=== PATIENT | female | born 1955 | race Caucasian/White ===

== ENCOUNTER → 2016-10-08 | Outpatient (REF) | payer OTHER | LOC: M SFHCWAGY 14:00 | PROVIDERS: ATTEND Nurse Practitioner Women's Health | DX: Z12.4 Encounter for screening for malignant neoplasm of cervix (principal); N95.2 Postmenopausal atrophic vaginitis ==

== ENCOUNTER → 2016-10-08 | Outpatient (CLI) | payer OTHER ==
--- NOTE | 2016-10-08 14:24 | REPMRS ---
Patient History The patient states she had a clinical breast exam in 09/2016. Patient is postmenopausal and has history of colorectal cancer at age 55. Family history of endometrial cancer in mother at age 38. Digital Woman Screen Mammo: October 08, 2016 - Exam #: [id number] Bilateral CC and MLO view(s) were taken. Technologist: Ophelia Butler Technologist Prior study comparison: September 06, 2015, digital woman screen mammo performed at [facility]. September 05, 2014, digital woman screen mammo performed at [facility]. May 24, 2013, digital woman screen mammo performed at [facility] to [facility]. FINDINGS: There are scattered fibroglandular densities. There has been no change in the appearance of the mammogram from the prior studies. There is a mild amount of scattered fibroglandular density which is fairly symmetric. There is no interval development of dominant mass, architectural distortion, or clustered microcalcification suggestive of malignancy. ASSESSMENT: BI-RADS/ACR category 1 mammogram. Negative. Recommendation Routine screening mammogram in 1 year (for women over age 40). This mammogram was interpreted with the aid of an FDA-approved computer-aided dectection system. Electronically Signed By: Gomez Smart MD 10/08/16 [id number]
== END ==
LOC: M WHC 13:24
PROVIDERS: ATTEND Nurse Practitioner Women's Health
DX: Z12.31 Encounter for screening mammogram for malignant neoplasm of breast (principal); Z78.0 Asymptomatic menopausal state

== ENCOUNTER → 2016-12-22 | Outpatient (CLI) | payer OTHER ==
[~2016-12-22] MED LIST: BUPIVACAINE HCL 0.25% 30 ML VIAL As Ordered ONE; ISOVUE-M 300 61% 15ML VIAL (Q9967) As Ordered ONE; LIDOCAINE 1% SDV INJ 30 ML VIAL As Ordered ONE
--- NOTE | 2016-12-22 17:53 | REP ---
FACET BLOCK: The images were reviewed with Dr. Mchugh. The patient has a history of back pain. The portable C-ARM was provided in the OR for Dr. Love for fluoroscopic guidance. 1 intraoperative fluoroscopic spot films was obtained for needle placement verification for right lumbar facet injection. The films are on the PACs system and are available for review. 19 seconds of fluoroscopic time was utilized for this procedure. Reviewed by YOSHI Hinds 12/23/2016 09:21 AEdited and Signed by Myron Mchugh MD 12/24/2016 04:58 P
--- NOTE | 2016-12-28 00:12 | ECWPNPC ---
PATIENT NAME: FELIPE MOSQUERA : 1955 GENDER: FEMALE VISIT DATE: 12/22/2016 DISCHARGE DATE: 12/22/16 1136 VISIT LOCKED DATE TIME: PHYSICIAN: IBRAHIMA LUCERO RESOURCE: IBRAHIMA LUCERO REASON FOR APPOINTMENT 1. DIMITRY LUMBAR FACET BLOCK HISTORY OF PRESENT ILLNESS HISTORY OF PRESENT ILLNESS: PAIN THE PATIENT DESCRIBES THE PAIN... FALL RISK SCREENING: SCREENING :NO FALLS IN THE PAST YEAR CURRENT MEDICATIONS TAKING LISINOPRIL 10 10 MG TABLET 1 TAB(S) ORALLY DAILY, NOTES: 12/21/161729 TAKING XANAX 0.5 MG TABLET 1 TABLET ORALLY THREE TIMES A DAY NEEDED, NOTES: 12/21/162129 TAKING CALCIUM 600-D 600-400 MG-UNIT TABLET 1 TABLET WITH FOOD ORALLY ONCE A DAY, NOTES: 12/21/161729 TAKING ACETAMINOPHEN-CODEINE #3 300-30 MG TABLET 1 TABLET NEEDED ORALLY EVERY 6 HRS, NOTES: 12/21/161729 TAKING ZOCOR 20 MG TABLET 1 TABLET IN THE EVENING ORALLY ONCE A DAY, NOTES: 07-26-161729 TAKING NORVASC 2.5 MG TABLET 1 TABLET ORALLY ONCE A DAY, NOTES: 12/21/161729 TAKING SIMVASTATIN 20 MG TABLET 1 TABLET IN THE EVENING ORALLY ONCE A DAY, NOTES: 12/21/162129 NOT-TAKING FOSAMAX 40 MG TABLET 1 TABLET ORALLY ONCE A WEEK MEDICATION LIST REVIEWED AND RECONCILED WITH THE PATIENT PAST MEDICAL HISTORY HYPERLIPIDEMIA OSTEOPENIA REFLUX/HIATAL HERNIA LOW BACK AND SPINAL DISC PROBLEMS CANCER COLON, 2010, SURGICAL RX ONLY. NO CHEMO OR RADIATION. ALLERGIES CYMBALTA: CONFUSION: SIDE EFFECTS SURGICAL HISTORY -4 COLON RESECTION COLONOSCOPY 12/2015 SOCIAL HISTORY GENERAL: PAIN CLINIC PFS, CLERGY, PUBLIC HEALTH REFERRALS CLERGY REFERRAL NEEDED?NO WAS THE PROVIDER NOTIFIED OF ANY PERTINENT INFO?NO PFS REFERRAL NEEDED?NO PUBLIC HEALTH REFERRAL NEEDED?NO PATIENT: ____. REVIEW OF SYSTEMS CONSTITUTIONAL: ANY CHANGE IN YOUR MEDICAL CONDITION? NO . CHILLS NO . FEVER NO . INFECTION: DO YOU HAVE NEW INFECTIONS? NO . DO YOU HAVE HISTORY OF MRSA? NO . MUSCULOSKELETAL: ANY NEW PATTERNS OF PAIN OR NUMBNESS? NO . GASTROENTEROLOGY: ANY NEW CHANGE IN BOWEL CONTROL? NO . GENITOURINARY: ANY NEW CHANGE IN BLADDER CONTROL? NO . IS THERE A CHANCE YOU COULD BE ? NO . HEMATOLOGY/LYMPH: DO YOU TAKE ANY BLOOD THINNERS? (FOR EXAMPLE- COUMADIN, PLAVIX, AGGRENOX, PLATEL, PRADAXA, OR XARELTO) NO . WHEN WAS YOUR LAST DOSE? DATE: TIME: . NEUROLOGY: HAVE YOU FALLEN IN THE PAST 6 MONTHS? NO . ANY NEW EXTREMITY NUMBNESS OR WEAKNESS? NO . CARDIOLOGY: DO YOU HAVE A PACEMAKER OR DEFIBRILLATOR? NO . RESPIRATORY: HAVE YOU BEEN SICK IN THE PAST WEEK? NO . FEVER NO . FLU LIKE SYMPTOMS? NO . COUGH NO . INTEGUMENTARY: DO YOU HAVE ANY RASHES OR OPEN SORES? NO . ALLERGIC/IMMUNO: ARE YOU ALLERGIC TO SHELLFISH OR IV DYE? NO . ANY NEW ALLERGIES? NO . PSYCHIATRIC: DO YOU HAVE THOUGHTS OF HURTING YOURSELF OR SOMEONE ELSE? NO . ARE YOU ABUSED, NEGLECTED, OR IN AN UNSAFE ENVIRONMENT? NO . ENDOCRINOLOGY: ARE YOU DIABETIC? NO . OTHER: DO YOU NEED ANY PRESCRIPTIONS? NO . IF YES, PLEASE LIST: ____ . ANY NEW PROBLEMS WITH YOUR MEDICATIONS? NO . WHEN DID YOU LAST EAT? ____12/21/16 2400 . WHEN DID YOU LAST DRINK? ____12/22/16 0530 . WHAT DID YOU LAST DRINK? ____BLACK COFFEE . NAME OF PERSON DRIVING YOU HOME? ____GEOVANNA MOSQUERA . DO YOU HAVE ANY OTHER QUESTIONS OR CONCERNS NO . REVIEWED BY: PROVIDER: . VITAL SIGNS WT 118 LBS, HT 64 IN, BMI 20.25 INDEX, BP 133/66 MM HG, HR 73 /MIN, RR 16 /MIN, TEMP 97.1 F, OXYGEN SAT % 100%, SAFE IN ENV? (Y/N) YES, NA INITIALS SC09:20, REVIEWED BY: LOREN. ASSESSMENTS SPONDYLOSIS WITHOUT MYELOPATHY OR RADICULOPATHY, LUMBOSACRAL REGION - M47.817 (PRIMARY) SPONDYLOSIS WITHOUT MYELOPATHY OR RADICULOPATHY, LUMBAR REGION - M47.816 PROCEDURES PN LUMBAR FACET BLOCK DIAGNOSTIC PRE PROCEDURE DIAGNOSIS LUMBAR SPONDYLOSIS, LUMBOSACRAL SPONDYLOSIS POST PROCEDURE DIAGNOSIS LUMBAR SPONDYLOSIS, LUMBOSACRAL SPONDYLOSIS PROCEDURE RIGHT L4-L5 AND RIGHT L5-S1 FACET BLOCK DIAGNOSTIC NUMBER # [address] IBRAHIMA LUCERO THERAPIST RRT NONE ANESTHESIA LOCAL PRE PROCEDURE NOTE THE PATIENT WITH HISTORY OF CHRONIC LOW BACK PAIN. I EVALUATED THE PATIENT AND REVIEWED THE CHART. I WENT OVER THE RISKS, ALTERNATIVES, AND BENEFITS ASSOCIATED WITH THIS PROCEDURE. THE PATIENT WOULD LIKE TO PROCEED AND GAVE CONSENT TO PERFORM THE PROCEDURE. AGREED WITH THE PATIENT WE ARE DOING THIS PROCEDURE TO DETERMINE IF THE PATIENT IS A CANDIDATE FOR A RADIOFREQUENCY ABLATION OF THE FACETS JOINTS. THE PATIENT DENIES UNEXPLAINABLE WEIGHT LOSS, FEVER, CHILLS, OR NEW CHANGES IN URINARY OR BOWEL CONTROL DESCRIPTION OF PROCEDURE THE PATIENT WAS BROUGHT TO THE PROCEDURE ROOM AND PLACED IN THE PRONE POSITION. THE LUMBOSACRAL AREA WAS CLEANED WITH CHLORAPREP SOLUTION AND DRAPED ASEPTICALLY. THE PROCEDURE WAS DONE UNDER STERILE CONDITIONS. I CHECKED LATERALITY AND THE LEVEL WHERE THE PROCEDURE WAS GOING TO BE PERFORMED WITH THE PATIENT AND THE SUPPORTING STAFF AT THE MOMENT OF THE TIME OUT IN THE PROCEDURE ROOM. UNDER FLUOROSCOPIC GUIDANCE, TARGETS WERE SELECTED AT THE INTERSECTION OF THE RIGHT TRANSVERSE PROCESS OF L4, L5 AND ALA OF S1 WITH ITS RESPECTIVE SUPERIOR ARTICULAR PROCESS. LIDOCAINE WAS USED TO NUMB THE SKIN AND THE SUBCUTANEOUS TISSUE BELOW IT. SPINAL NEEDLE, 22-GAUGE WAS ADVANCED UNDER FLUOROSCOPIC GUIDANCE AND FOLLOWING PATIENT FEEDBACK UNTIL THE TARGETS WERE REACHED. POSITION OF THE NEEDLES WAS VERIFIED WITH AP AND LATERAL VIEWS. AFTER PROPER POSITION OF THE NEEDLES WAS ACHIEVED, ISOVUE-M DYE 30% 0.1 ML WAS INJECTED AT EACH SITE SHOWING ADEQUATE SPREAD OF THE DYE. THEN A SOLUTION OF 0.4 ML OF BUPIVACAINE 0.25% WAS INJECTED AT EACH SITE. THERE WAS NO EVIDENCE OF BLOOD, PARESTHESIA OR CEREBROSPINAL FLUID DURING THE PROCEDURE. THE PATIENT WAS SENT TO THE RECOVERY ROOM. THE PATIENT WAS MOVING THE EXTREMITIES AND DOING WELL. THERE WAS NO COMPLICATION DURING THE PROCEDURE. FLUOROSCOPY TIME WAS 19 SECONDS POST PROCEDURE NOTE THE PATIENT WILL DOCUMENT HIS PAIN LEVEL AND RESPONSE TO THIS PROCEDURE EVERY 30 MINUTES. THE PATIENT WILL BE SEEN IN A FOLLOW UP IN THE NEXT FEW WEEKS. FURTHER DETERMINATION FOR HIS CASE WILL BE DONE AT THE NEXT VISIT. INSTRUCTIONS WERE GIVEN, QUESTIONS WERE ANSWERED, AND THE PATIENT EXPRESSED UNDERSTANDING AND AGREED WITH THE PLAN. I, TONE NORWOOD, DOCUMENTED THE ABOVE INFORMATION ACTING A SCRIBE FOR DR. LUCERO. I HAVE REVIEWED THE ABOVE DOCUMENT, WRITTEN BY TONE NORWOOD SCRIBBrenton AND I VERIFY THAT IT IS ACCURATE. DIAGNOSTIC IMAGING [facility] FACET BLOCK (PAIN)[id number] PROCEDURE CODES 34926 INJ PARAVERT F JNT L/S 1 LEV 65433 INJ PARAVERT F JNT L/S 2 LEV 6045F RADXPS IN END [id number] PXD DISPOSITION & COMMUNICATION FOLLOW UP 3 WEEKS ELECTRONICALLY SIGNED BY IBRAHIMA LUCERO MD ON 12/27/2016 AT 12:19 PM EDT DISCLAIMER : THIS IS A VISIT SUMMARY EXTRACTED FROM THE [employer] CHART. IT IS NOT A COPY OF THE [employer] PROGRESS NOTE. MTDD
== END ==
LOC: M PAIN 09:00
PROVIDERS: ATTEND Anesthesiology
DX: M47.817 Spondylosis without myelopathy or radiculopathy, lumbosacral region (principal); M47.816 Spondylosis without myelopathy or radiculopathy, lumbar region; M54.5 Low back pain; G89.29 Other chronic pain; Z79.891 Long term (current) use of opiate analgesic; Z79.899 Other long term (current) drug therapy; Z88.8 Allergy status to other drugs, medicaments and biological substances; E78.5 Hyperlipidemia, unspecified; K21.9 Gastro-esophageal reflux disease without esophagitis; Z85.038 Personal history of other malignant neoplasm of large intestine
CPT/HCPCS: 64493; 64494; Q9967

== ENCOUNTER → 2017-01-05 | Outpatient (CLI) | payer OTHER ==
--- NOTE | 2017-01-20 02:23 | ECWPNPC ---
PATIENT NAME: FELIPE MOSQUERA : 1955 GENDER: FEMALE VISIT DATE: 01/05/2017 DISCHARGE DATE: 01/05/17 0000 VISIT LOCKED DATE TIME: PHYSICIAN: JACKIE TAVERAS RESOURCE: JACKIE TAVERAS REASON FOR APPOINTMENT 1. POST LFBD HISTORY OF PRESENT ILLNESS HISTORY OF PRESENT ILLNESS: HERE FOR POST PROCEDURE F/U.HAD DIAGNOSTIC RIGHT LUMBAR FACET BLOCK #2 ON 12-22-16.HOURLY PAIN DIARY IS REVIEWED AND IS SHOWING MARKED REUCTION IN PAIN FOR 24H THEN PAIN HAS RETURNED TO BASELINE.RATING PAIN VAS 9/10.DISCUSSED RADIOFREQUENCY PROCEDURE.PATIENT WOULD LIKE TO CONSIDER RADIOFREQUENCY BUT IS CURRENTLY BEING EVALUATED FOR CARDIAC PROBLEMS AND WILL BE HAVING A CARDIAC CATH. IN THE NEXT FEW WEEKS.MAIN CONCERN WAS HYPERTENSION AND FAMILY CARDIAC ISSUES.CURRENTLY WORKS CLEANING WHICH IS VERY PHYSICAL WORK. RATING PAIN VAS 9/10. PAIN THE PATIENT DESCRIBES THE PAIN... FALL RISK SCREENING: SCREENING :NO FALLS IN THE PAST YEAR CURRENT MEDICATIONS TAKING LISINOPRIL 10 10 MG TABLET 1 TAB(S) ORALLY DAILY, NOTES: 12/21/161729 TAKING XANAX 0.5 MG TABLET 1 TABLET ORALLY THREE TIMES A DAY NEEDED, NOTES: 12/21/162129 TAKING CALCIUM 600-D 600-400 MG-UNIT TABLET 1 TABLET WITH FOOD ORALLY ONCE A DAY, NOTES: 12/21/161729 TAKING ACETAMINOPHEN-CODEINE #3 300-30 MG TABLET 1 TABLET NEEDED ORALLY EVERY 6 HRS, NOTES: 12/21/161729 TAKING ZOCOR 20 MG TABLET 1 TABLET IN THE EVENING ORALLY ONCE A DAY, NOTES: 07-26-161729 TAKING SIMVASTATIN 20 MG TABLET 1 TABLET IN THE EVENING ORALLY ONCE A DAY, NOTES: 12/21/162129 NOT-TAKING NORVASC 2.5 MG TABLET 1 TABLET ORALLY ONCE A DAY, NOTES: 12/21/161729 NOT-TAKING FOSAMAX 40 MG TABLET 1 TABLET ORALLY ONCE A WEEK MEDICATION LIST REVIEWED AND RECONCILED WITH THE PATIENT PAST MEDICAL HISTORY HYPERLIPIDEMIA OSTEOPENIA REFLUX/HIATAL HERNIA LOW BACK AND SPINAL DISC PROBLEMS CANCER COLON, 2010, SURGICAL RX ONLY. NO CHEMO OR RADIATION. C SECTIONS X4 ALLERGIES CYMBALTA: CONFUSION: SIDE EFFECTS SURGICAL HISTORY -4 COLON RESECTION COLONOSCOPY 12/2015 REVIEW OF SYSTEMS CONSTITUTIONAL: ANY CHANGE IN YOUR MEDICAL CONDITION? NO, PT STATES SHE WAS TAKING NORVASC, PT WAS REFERRED TO JEWELRY SALES COORDINATOR IN [place]...NAME? WHO ADVISED PT TO STOP NORVASC IT WAS NOT HELPING HER, SO PT STOPPED TAKING NORVASC. PT WAS HERE FOR BILAT LUMBAR FACET BLOCK 12/22/16. PRE PROCEDURE, PT STATES PAIN WAS 9/10. POST PROCEDURE PAIN WAS COMPLETELY RELIEVED FOR THE DAY. THEN PAIN STARTED INCREASING TO 4/10 THE NEXT DAY, WITH EACH DAY INCREASING IN INTENSITY, TODAY PT REPORTS 10/10 PAIN. . CHILLS NO . FEVER NO . INFECTION: DO YOU HAVE NEW INFECTIONS? NO . DO YOU HAVE HISTORY OF MRSA? NO . MUSCULOSKELETAL: ANY NEW PATTERNS OF PAIN OR NUMBNESS? NO . GASTROENTEROLOGY: ANY NEW CHANGE IN BOWEL CONTROL? NO . GENITOURINARY: ANY NEW CHANGE IN BLADDER CONTROL? NO . IS THERE A CHANCE YOU COULD BE ? NO . HEMATOLOGY/LYMPH: DO YOU TAKE ANY BLOOD THINNERS? (FOR EXAMPLE- COUMADIN, PLAVIX, AGGRENOX, PLATEL, PRADAXA, OR XARELTO) NO . WHEN WAS YOUR LAST DOSE? DATE: TIME: . NEUROLOGY: HAVE YOU FALLEN IN THE PAST 6 MONTHS? NO . ANY NEW EXTREMITY NUMBNESS OR WEAKNESS? NO . CARDIOLOGY: DO YOU HAVE A PACEMAKER OR DEFIBRILLATOR? NO . RESPIRATORY: HAVE YOU BEEN SICK IN THE PAST WEEK? NO . FEVER NO . FLU LIKE SYMPTOMS? NO . COUGH NO . INTEGUMENTARY: DO YOU HAVE ANY RASHES OR OPEN SORES? NO . ALLERGIC/IMMUNO: ARE YOU ALLERGIC TO SHELLFISH OR IV DYE? NO . ANY NEW ALLERGIES? NO . PSYCHIATRIC: DO YOU HAVE THOUGHTS OF HURTING YOURSELF OR SOMEONE ELSE? NO . ARE YOU ABUSED, NEGLECTED, OR IN AN UNSAFE ENVIRONMENT? NO . ENDOCRINOLOGY: ARE YOU DIABETIC? NO . OTHER: DO YOU NEED ANY PRESCRIPTIONS? NO . IF YES, PLEASE LIST: ____ . ANY NEW PROBLEMS WITH YOUR MEDICATIONS? NO . WHEN DID YOU LAST EAT? ____ . WHEN DID YOU LAST DRINK? ____ . WHAT DID YOU LAST DRINK? ____ . NAME OF PERSON DRIVING YOU HOME? ____ . DO YOU HAVE ANY OTHER QUESTIONS OR CONCERNS NO . REVIEWED BY: PROVIDER: JACKIE NELSON . VITAL SIGNS WT 120.0 LBS, HT 64 IN, BMI 20.60 INDEX, BP 132/64 MM HG, HR 77 /MIN, RR 16 /MIN, TEMP 98.9 F, OXYGEN SAT % 97%, NA INITIALS TL 1531. EXAMINATION LUMBAR SPINE/LOWER BACK: INSPECTION:NORMAL CURVATURE OF SPINE. PALPATION:VERTEBRAL SPINE TENDERNESS.BILATERAL LOWER LUMBAR FACET TENDERNESS BILAT.. MOTOR SYSTEM:5/5 BLE. SENSORY EXAM:NORMAL. ASSESSMENTS SPONDYLOSIS WITHOUT MYELOPATHY OR RADICULOPATHY, LUMBAR REGION - M47.816 (PRIMARY) TREATMENT SPONDYLOSIS WITHOUT MYELOPATHY OR RADICULOPATHY, LUMBAR REGION NOTES: [employer] RADIOFREQUENCY LUMBAR FACET. PROCEDURE CODES FA211 ESTABILISHED PATIENT [facility] CHARGE DISPOSITION & COMMUNICATION FOLLOW UP 6 WEEKS ELECTRONICALLY SIGNED BY OMAR BERGER ON 01/19/2017 AT 05:47 PM EDT DISCLAIMER : THIS IS A VISIT SUMMARY EXTRACTED FROM THE [employer] CHART. IT IS NOT A COPY OF THE [employer] PROGRESS NOTE. AYDE
== END ==
LOC: M PAIN 14:40
PROVIDERS: ATTEND Nurse Practitioner Family
DX: G89.29 Other chronic pain (principal); M47.816 Spondylosis without myelopathy or radiculopathy, lumbar region; E78.00 Pure hypercholesterolemia, unspecified; M85.80 Other specified disorders of bone density and structure, unspecified site; K21.9 Gastro-esophageal reflux disease without esophagitis; K44.9 Diaphragmatic hernia without obstruction or gangrene; Z88.8 Allergy status to other drugs, medicaments and biological substances; Z79.899 Other long term (current) drug therapy

== ENCOUNTER → 2017-07-27 | Outpatient (REF) | payer OTHER | LOC: M SMT 13:15 | PROVIDERS: ATTEND Nurse Practitioner Family | DX: R31.29 Other microscopic hematuria (principal) ==

== ENCOUNTER → 2017-07-27 | Outpatient (CLI) | payer OTHER ==
[2017-07-27 13:16] LABS: ANION GAP 8 MEQ/L (8-16); BLOOD UREA NITROGEN 14 MG/DL (7-18); CALCIUM LEVEL 9.1 MG/DL (8.8-10.2); CARBON DIOXIDE LEVEL 27 MEQ/L (21-32); CHLORIDE LEVEL 105 MEQ/L (98-107); CREATININE FOR GFR 0.78 MG/DL (0.55-1.02); GLOMERULAR FILTRATION RATE > 60.0 (>45); GLUCOSE, FASTING 95 MG/DL (80-110); POTASSIUM SERUM 4.7 MEQ/L (3.5-5.1); SODIUM LEVEL 140 MEQ/L (136-145)
== END ==
LOC: M SMT 09:59
PROVIDERS: ATTEND Nurse Practitioner Family
DX: R31.29 Other microscopic hematuria (principal)

== ENCOUNTER → 2017-08-03 | Outpatient (CLI) | payer OTHER ==
[~2017-08-03] MED LIST changes: -BUPIVACAINE HCL 0.25% 30 ML VIAL As Ordered ONE; +ISOVUE-370 76% 100ML VIAL (Q9967) As Ordered ONE; -ISOVUE-M 300 61% 15ML VIAL (Q9967) As Ordered ONE; -LIDOCAINE 1% SDV INJ 30 ML VIAL As Ordered ONE
--- NOTE | 2017-08-03 11:13 | REP ---
CT ABDOMEN PELVIS WITHOUT AND WITH CONTRAST: 08/03/2017 COMPARISON: 01/12/2011. CLINICAL HISTORY: Hematuria. Prior history colon cancer with resection. Status post cholecystectomy and appendectomy. TECHNIQUE: Noncontrast images through the abdomen pelvis with a bolus of 100 mL of Isovue 370 with arterial phase imaging through the upper abdomen, venous phase imaging through the abdomen pelvis and delayed imaging then performed. Coronal and sagittal reconstructions of the delayed phase images provided. FINDINGS: CT ABDOMEN: The lung bases show minor dependent atelectatic changes. Deep sulci without effusion, infiltrate, nodule or mass. Heart unchanged. There is no pericardial thickening or effusion and no hiatal hernia. There is no hepatomegaly, splenomegaly, focal hepatic or splenic lesion nor intrahepatic biliary dilatation. There is atherosclerotic calcification of the aorta without aneurysm. Pancreas grossly intact. Small fluid-filled gallbladder without calcified stone or mass. No periaortic pathologic sized adenopathy. Adrenal glands without a mass. The kidneys show an upper pole cyst posteriorly on the left about 17 mm. No solid mass in either kidney. There is no hydronephrosis, hydroureter, ureteral dilatation or stone. Small bowel loops grossly intact. Colon shows stool and gas. There is an anastomotic suture line in the right abdomen from colonic resection and anastomosis. Lung window review of all CT slices shows no perforation or free air in the abdomen or pelvis. Bone windows show degenerative disc changes in the lower thoracic spine at T11-12 levels although mild. No compression deformity or destructive lesion. Minor hypertrophic facet changes lower lumbar spine. Visualized ribs intact. CT PELVIS: The sacrum, SI joints, iliac wings, acetabuli, hips and ischia are without fracture. A few tiny bone islands are noted and there is some minor degenerative changes of the hips but no destructive lesion. Bladder very minimally filled. No gross mass, wall thickening or stone. Uterus absent. Vaginal cuff intact. Small bowel loops in the pelvis are not dilated. There is no pelvic free fluid or adenopathy. Distal left colon, sigmoid and rectum without colitis or diverticulitis. No ventral or inguinal hernia nor pathologic sized inguinal adenopathy. IMPRESSION: 1. Upper pole cyst left kidney about 17 mm without hydronephrosis, solid renal mass, other cysts hydroureter, renal, ureteral or bladder stone. 2. Atherosclerotic calcifications aorta and branches without aneurysm. 3. Anastomotic sutures in the right upper quadrant from prior right colon resection with no stricture or mass at the anastomosis. 4. Loops intact. No adenopathy, ascites or other acute finding. Bones intact. Bladder without mass, wall thickening or other acute finding. Pelvis without a uterus but otherwise unremarkable. Signed by Ru Jj MD 08/03/2017 08:28 P
== END ==
LOC: M RAD 09:32
PROVIDERS: ATTEND Nurse Practitioner Family
DX: R31.29 Other microscopic hematuria (principal)
CPT/HCPCS: 74178; Q9967

== ENCOUNTER → 2019-02-01 | Outpatient (CLI) | payer OTHER ==
--- NOTE | 2019-02-01 11:00 | REPMRS ---
Patient History The patient states she had a clinical breast exam in 01/2019. Patient is postmenopausal and has history of colorectal cancer at age 55. Family history of endometrial cancer at age 38 in mother. No Hormone Replacement Therapy 3D TOMOSYNTHESIS WAS PERFORMED. Digital Woman Screen Mammo: February 01, 2019 - Exam #: [id number] Bilateral CC and MLO view(s) were taken. Technologist: Constance Mayorga, Technologist Prior study comparison: December 01, 2017, digital woman screen mammo performed at [facility]. October 08, 2016, digital woman screen mammo performed at [facility]. FINDINGS: There are scattered fibroglandular densities. There has been no change in the appearance of the mammogram from the prior studies. There is a mild amount of residual fibroglandular tissue which is fairly symmetric. There is no interval development of dominant mass, architectural distortion, or clustered microcalcification suggestive of malignancy. Assessment: BI-RADS/ACR category 1 mammogram. Negative Mammogram. Recommendation Routine screening mammogram in 1 year (for women over age 40). This mammogram was interpreted with the aid of an FDA-approved computer-aided dectection system. Electronically Signed By: Myron Mchugh MD 02/01/19 [id number]
== END ==
LOC: M WHC 08:51
PROVIDERS: ATTEND Nurse Practitioner Women's Health
DX: Z12.31 Encounter for screening mammogram for malignant neoplasm of breast (principal); Z78.0 Asymptomatic menopausal state; Z85.038 Personal history of other malignant neoplasm of large intestine; Z80.49 Family history of malignant neoplasm of other genital organs

== ENCOUNTER → 2020-01-26 | Outpatient (CLI) | payer OTHER ==
[~2020-01-26] MED LIST changes: +HYDR-3713 PO; -ISOVUE-370 76% 100ML VIAL (Q9967) As Ordered ONE; +LISI10TA4 PO; +SIMV40TA20 PO; +XANA0.25 PO
== END ==
LOC: M LABSMTC 10:01
PROVIDERS: ATTEND Anesthesiology
DX: Z01.818 Encounter for other preprocedural examination (principal); Z11.59 Encounter for screening for other viral diseases
CPT/HCPCS: C9803; U0003

== ENCOUNTER 2020-01-29 06:44 | Day surgery (SDC) | payer OTHER ==
[~2020-01-29] VITALS: Ht 162.6 cm; Wt 50.8 kg
[2020-01-29] MEDS ORDERED: LIDOCAINE 2% 100MG/5ML SDV (FOR ANES.) As Ordered ONE (06:58)
[2020-01-29] MEDS ORDERED: propofoL 200 MG/20 ML VIAL As Ordered ONE (06:58)
[2020-01-29] MEDS ORDERED: NS 1,000 ML IV ONE (07:00)
--- NOTE | 2020-01-29 08:19 | ROOR ---
Patient Name: Abbey Oliveira Procedure Date: 01/29/2020 7:43 AM Date of : 1955 Age: 64 Room: [facility] Gender: Female Note Status: Finalized Procedure: Colonoscopy Indications: High risk colon cancer surveillance: Personal history of colonic polyps Providers: Jacob BALL MD Referring MD: ION HAAS DO Requesting Provider: Medicines: Monitored Anesthesia Care Complications: No immediate complications. Procedure: Pre-Anesthesia Assessment: - The heart rate, respiratory rate, oxygen saturations, blood pressure, adequacy of pulmonary ventilation, and response to care were monitored throughout the procedure. The Colonoscope was introduced through the anus and advanced to the ileocolonic anastomosis. The colonoscopy was performed without difficulty. The patient tolerated the procedure well. The quality of the bowel preparation was good. Findings: The perianal and digital rectal examinations were normal. There was evidence of a prior end-to-side ileo-colonic anastomosis in the transverse colon. This was patent and was characterized by healthy appearing mucosa. Mild sigmoid diverticulosis and small internal hemorrhoids. The exam was otherwise without abnormality. Impression: - Patent end-to-side ileo-colonic anastomosis, characterized by healthy appearing mucosa. - Mild sigmoid diverticulosis and small internal hemorrhoids. - The examination was otherwise normal. - No specimens collected. Recommendation: - Repeat colonoscopy in 5 years for surveillance. Jacob Ball MD Jacob BALL MD 01/29/2020 8:19:01 AM Electronically signed by Jacob BALL MD Number of Addenda: 0 Note Initiated On: 01/29/2020 7:43 AM Estimated Blood Loss: Estimated blood loss: none.
[2020-01-29 08:40] VITALS: BP 130/63
== END 2020-01-29 08:45 | disposition home or self-care (01) ==
LOC: M OPP 06:44
PROVIDERS: ATTEND Internal Medicine Gastroenterology
DX: Z12.11 Encounter for screening for malignant neoplasm of colon (principal); Z86.010 Personal history of colon polyps; Z98.0 Intestinal bypass and anastomosis status; K57.30 Diverticulosis of large intestine without perforation or abscess without bleeding; Z79.891 Long term (current) use of opiate analgesic; Z79.899 Other long term (current) drug therapy

== ENCOUNTER 2020-05-03 07:14 | Emergency (ER) | payer MEDICARE, OTHER ==
[~2020-05-03] VITALS: Ht 162.6 cm; Wt 53.4 kg
[2020-05-03] MEDS ORDERED: ROSU20TA5 (07:27)
[2020-05-03 08:32] LABS: BASO # 0.1 10^3/uL (0.0-0.2); BASO % 0.8 % (0.0-1.0); EOS # 0.1 10^3/uL (0.0-0.5); EOS % 1.3 % (0.0-3.0); HEMATOCRIT 42.6 % (36.0-47.0); LYMPH # 1.2 10^3/uL (1.5-5.0); LYMPH % 15.5 % (24.0-44.0); MEAN CORPUSCULAR HEMOGLOBIN 32.1 pg (27.0-33.0); MEAN CORPUSCULAR HGB CONC 32.9 g/dl (32.0-36.5); MEAN CORPUSCULAR VOLUME 97.7 fl (80.0-96.0); MONO # 0.4 10^3/uL (0.0-0.8); MONO % 5.9 % (0.0-5.0); NEUTROPHILS # 5.7 10^3/uL (1.5-8.5); NEUTROPHILS % 76.2 % (36.0-66.0); PLATELET COUNT, AUTOMATED 209 10^3/uL (150-450); RED BLOOD COUNT 4.36 10^6/uL (4.00-5.40); WHITE BLOOD COUNT 7.5 10^3/uL (4.0-10.0)
[2020-05-03] MEDS ORDERED: ISOVUE-370 76% 100ML VIAL As Ordered ONE (08:34)
[2020-05-03 09:01] LABS: BILIRUBIN,DIRECT 0.1 MG/DL (0.0-0.2); BILIRUBIN,TOTAL 0.4 MG/DL (0.2-1.0); TOTAL PROTEIN 7.5 GM/DL (6.4-8.2)
--- NOTE | 2020-05-03 09:24 | REPVR ---
PROCEDURE INFORMATION: Exam: CT Abdomen And Pelvis With Contrast Exam date and time: 05/03/2020 8:52 AM Age: 64 years old Clinical indication: Abdominal pain; Additional info: Diffuse abd pain, h/o colorectal CA S/P resection TECHNIQUE: Imaging protocol: Computed tomography of the abdomen and pelvis with intravenous contrast. Radiation optimization: All CT scans at this facility use at least one of these dose optimization techniques: automated exposure control; mA and/or kV adjustment per patient size (includes targeted exams where dose is matched to clinical indication); or iterative reconstruction. Contrast material: ISOVUE 370; Contrast volume: 100 ml; Contrast route: INTRAVENOUS (IV); COMPARISON: CT ABD PELVIS W/O FOL BY WIT 08/03/2017 9:56 AM FINDINGS: Lungs: Linear atelectasis or scarring at the left base. Liver: Hepatomegaly and steatosis. Gallbladder and bile ducts: Normal. No calcified stones. No ductal dilation. Pancreas: Normal. No ductal dilation. Spleen: Normal. No splenomegaly. Adrenals: Normal. No mass. Kidneys and ureters: Complex possibly hemorrhagic stable left renal cyst. Stomach and bowel: Status post right hemicolectomy with soft tissue nodularity along the surgical suture and stranding of the adjacent fat. Appendix: No evidence of appendicitis. Intraperitoneal space: Unremarkable. No free air. No significant fluid collection. Vasculature: Subcapsular hemangioma in the left hepatic lobe atherosclerotic disease of the abdominal aorta. Lymph nodes: Unremarkable. No enlarged lymph nodes. Bladder: Unremarkable as visualized. Reproductive: Unremarkable as visualized. Bones/joints: Unremarkable. No acute fracture. IMPRESSION: Status post right hemicolectomy with soft tissue nodularity along the surgical suture and stranding of the adjacent fat. Tumor recurrence is considered. Electronically signed by: Calvin Sanderson On 05/03/2020 09:23:57 AM
[2020-05-03] MEDS ORDERED: KETOROLAC 30 MG/ML 1ML VIAL IV ONE (09:45)
[2020-05-03] MEDS ORDERED: AUGM875T28 PO (12:10)
[2020-05-03 12:28] VITALS: BP 133/62
--- NOTE | 2020-05-04 14:54 | ED PDOC ---
Post-Departure Follow-Up dr fredis de luna faxed formal report of ct abd/p for fu Diego Bauman MD May 04, 2020 14:54
== END 2020-05-03 12:29 | disposition home or self-care (01) ==
LOC: M ED 07:14
DX: R10.30 Lower abdominal pain, unspecified (principal); R11.0 Nausea; R31.9 Hematuria, unspecified; I10 Essential (primary) hypertension; E78.5 Hyperlipidemia, unspecified; F41.9 Anxiety disorder, unspecified; K44.9 Diaphragmatic hernia without obstruction or gangrene; M81.0 Age-related osteoporosis without current pathological fracture; Z85.038 Personal history of other malignant neoplasm of large intestine; Z79.899 Other long term (current) drug therapy; Z87.891 Personal history of nicotine dependence
CPT/HCPCS: 74177; 80047; 80076; 81001; 83605; 83690; 85025; 87040; 96374; 99284; J1885; Q9967

== ENCOUNTER → 2020-05-26 | Outpatient (CLI) | payer MEDICARE, OTHER ==
[~2020-05-26] MED LIST changes: +AUGM875T28 PO; +ROSU20TA5
== END ==
LOC: M LABSMTC 11:13
PROVIDERS: ATTEND Anesthesiology
DX: Z01.812 Encounter for preprocedural laboratory examination (principal); Z20.828 Contact with and (suspected) exposure to other viral communicable diseases
CPT/HCPCS: C9803; U0003

== ENCOUNTER 2020-05-31 06:36 | Day surgery (SDC) | payer MEDICARE, OTHER ==
[~2020-05-31] VITALS: Ht 162.6 cm; Wt 51.7 kg
[~2020-05-31 06:36] MED LIST changes: +NS 1,000 ML IV ONE
[2020-05-31] MEDS ORDERED: LIDOCAINE 2% 100MG/5ML SDV (FOR ANES.) As Ordered ONE (07:12)
[2020-05-31] MEDS ORDERED: propofoL 200 MG/20 ML VIAL As Ordered ONE ×2 (07:12→07:50)
--- NOTE | 2020-05-31 08:06 | ROOR ---
Patient Name: Abbey Oliveira Procedure Date: 05/31/2020 7:32 AM Date of : 1955 Age: 64 Room: [facility] Gender: Female Note Status: Finalized Procedure: Colonoscopy Indications: Abnormal CT of the GI tract = "Abnormal anastomosis" on recent CT. 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 Procedure: Pre-Anesthesia Assessment: - The heart rate, respiratory rate, oxygen saturations, blood pressure, adequacy of pulmonary ventilation, and response to care were monitored throughout the procedure. The Colonoscope was introduced through the anus and advanced to the ileocolonic anastomosis. The colonoscopy was performed without difficulty. The patient tolerated the procedure well. The quality of the bowel preparation was good. Findings: The perianal and digital rectal examinations were normal. There was evidence of a prior end-to-side ileo-colonic anastomosis at the hepatic flexure. This was patent and was characterized by healthy appearing mucosa. The anastomosis was traversed. Retroflexion in the right colon was performed. The dee-terminal ileum appeared normal. Mild sigmoid diverticulosis and small internal hemorrhoids. The exam was otherwise normal throughout the examined colon. Impression: - Patent end-to-side ileo-colonic anastomosis, characterized by healthy appearing mucosa. - The rest of the colon, the anastomosis and examined portion of the ileum are normal. - Mild sigmoid diverticulosis and small internal hemorrhoids. - No specimens collected. Recommendation: - Repeat colonoscopy in another 5 years as planned. Jacob Ball MD Jacob BALL MD 05/31/2020 8:05:49 AM Electronically signed by Jacob BALL MD Number of Addenda: 0 Note Initiated On: 05/31/2020 7:32 AM Estimated Blood Loss: Estimated blood loss: none.
[2020-05-31 08:19] VITALS: BP 119/72
== END 2020-05-31 08:38 | disposition home or self-care (01) ==
LOC: M OPP 06:36
PROVIDERS: ATTEND Internal Medicine Gastroenterology
DX: K57.30 Diverticulosis of large intestine without perforation or abscess without bleeding (principal); Z98.0 Intestinal bypass and anastomosis status; K64.8 Other hemorrhoids; Z79.891 Long term (current) use of opiate analgesic; Z79.899 Other long term (current) drug therapy; Z87.891 Personal history of nicotine dependence; Z85.038 Personal history of other malignant neoplasm of large intestine

== ENCOUNTER → 2020-09-09 | Outpatient (CLI) | payer SELFPAY ==
[~2020-09-09] MED LIST changes: -NS 1,000 ML IV ONE
== END ==
LOC: M LABSMTC 09:38
PROVIDERS: ATTEND Pediatrics
DX: Z20.822 Contact with and (suspected) exposure to COVID-19 (principal)

== ENCOUNTER → 2021-03-21 | Outpatient (CLI) | payer MEDICARE, OTHER ==
[~2021-03-21] MED LIST changes: +LISI10TA22 PO; -LISI10TA4 PO
--- NOTE | 2021-03-21 10:45 | REP ---
INDICATION: CERVICALGIA. COMPARISON: None. TECHNIQUE: Seven views FINDINGS: Lateral view shows a few mm of anterolisthesis of C4 on 5. There are posterior osteophytes at C5-6 and C6-7. Slight disc space narrowing at C5-6. The other disc space heights and all vertebral body heights are intact. There is no prevertebral swelling. The dens and anterior arch of C1 show normal relationship on flexion and extension without instability. Lateral masses of C1 and dens normal on the open mouth view. There is foraminal encroachment at C5-6 on the right and minimally at C5-6 and C6-7 on the left due to uncinate spurs. The cervicothoracic junction aligns normally. IMPRESSION: 1. Some degenerative disc and facet changes as described without compression deformity or instability. No avulsion fracture. 2. Foraminal encroachment bilaterally at C5-6 and on the left at C6-7 due to uncinate spurs. This is mild. No other significant or acute finding. <Electronically signed by Ru Jj > 03/21/21 [id number]
== END ==
LOC: M RAD 09:36 → M LAB 09:36
PROVIDERS: ATTEND Physician Assistant
DX: M54.2 Cervicalgia (principal)

== ENCOUNTER → 2021-09-19 | Outpatient (CLI) | payer MEDICARE, OTHER | LOC: M WUC 08:06 | PROVIDERS: ATTEND Family Medicine | DX: R05.1 Acute cough (principal); J43.9 Emphysema, unspecified ==

== ENCOUNTER 2022-04-04 19:34 | Emergency (ER) | payer MEDICARE, OTHER ==
[~2022-04-04] VITALS: Ht 162.6 cm; Wt 49.1 kg
[2022-04-04 21:59] LABS: BASO # 0.1 10^3/uL (0.0-0.2); BASO % 0.9 % (0.0-1.0); EOS # 0.1 10^3/uL (0.0-0.5); EOS % 0.8 % (0.0-3.0); LYMPH # 2.2 10^3/uL (1.5-5.0); LYMPH % 32.8 % (24.0-44.0); MEAN CORPUSCULAR HEMOGLOBIN 31.6 pg (27.0-33.0); MEAN CORPUSCULAR HGB CONC 32.5 g/dl (32.0-36.5); MEAN CORPUSCULAR VOLUME 97.3 fl (80.0-96.0); MONO # 0.4 10^3/uL (0.0-0.8); MONO % 6.3 % (2.0-8.0); NEUTROPHILS # 3.9 10^3/uL (1.5-8.5); PLATELET COUNT, AUTOMATED 196 10^3/uL (150-450); RED BLOOD COUNT 4.11 10^6/uL (4.00-5.40); WHITE BLOOD COUNT 6.6 10^3/uL (4.0-10.0)
[2022-04-04 22:39] LABS: CK-MB VALUE MASS 2.2 NG/ML (<3.6); MB/CK RELATIVE INDEX 1.63 (< OR =4)
[2022-04-04 22:44] LABS: ALT/SGPT 28 U/L (12-78); BILIRUBIN,DIRECT 0.2 MG/DL (0.0-0.2); BILIRUBIN,TOTAL 0.4 MG/DL (0.2-1.0); BLOOD UREA NITROGEN 11 MG/DL (7-18); CALCIUM LEVEL 9.3 MG/DL (8.8-10.2); CARBON DIOXIDE LEVEL 29 MEQ/L (21-32); CHLORIDE LEVEL 107 MEQ/L (98-107); CREATININE FOR GFR 0.84 MG/DL (0.55-1.30); GLOMERULAR FILTRATION RATE > 60.0 (>45); GLUCOSE, FASTING 91 MG/DL (70-100); LIPASE 123 U/L (73-393); NT-PRO BNP 546 PG/ML (<125); POTASSIUM SERUM 4.4 MEQ/L (3.5-5.1); SODIUM LEVEL 141 MEQ/L (136-145); TOTAL PROTEIN 7.6 GM/DL (6.4-8.2)
[2022-04-05 03:55] VITALS: BP 151/72
[2022-04-05] MEDS ORDERED: FUROSEMIDE 40MG/4ML VIAL (J1940) IV ONE (03:55)
[2022-04-05 04:40] LABS: CK-MB VALUE MASS 3.6 NG/ML (<3.6); MB/CK RELATIVE INDEX 1.58 (< OR =4)
[2022-04-05 05:00] VITALS: BP 138/79
== END 2022-04-05 05:33 | disposition home or self-care (01) ==
LOC: M ED 19:34
DX: R22.43 Localized swelling, mass and lump, lower limb, bilateral (principal); I10 Essential (primary) hypertension; R91.8 Other nonspecific abnormal finding of lung field; E78.5 Hyperlipidemia, unspecified; F41.9 Anxiety disorder, unspecified; Z85.038 Personal history of other malignant neoplasm of large intestine; M85.80 Other specified disorders of bone density and structure, unspecified site; Z87.891 Personal history of nicotine dependence; Z79.899 Other long term (current) drug therapy
CPT/HCPCS: 36415; 71046; 80048; 80076; 82550; 82553; 83690; 83880; 84443; 84484; 85025; 93005; 93970; 96374; 99284; J1940

== ENCOUNTER → 2022-05-06 | Outpatient (CLI) | payer MEDICARE, OTHER ==
[~2022-05-06] MED LIST changes: +GASTROGRAFIN SOLUTION 30ML (Q9963) As Ordered ONE; +ISOVUE-370 76% 100ML VIAL As Ordered ONE
== END ==
LOC: M RAD 14:16
PROVIDERS: ATTEND Internal Medicine
DX: N28.1 Cyst of kidney, acquired (principal); K57.90 Diverticulosis of intestine, part unspecified, without perforation or abscess without bleeding; R10.9 Unspecified abdominal pain
CPT/HCPCS: 74178; Q9963; Q9967

== ENCOUNTER → 2022-11-13 | Outpatient (CLI) | payer MEDICARE, OTHER ==
[~2022-11-13] MED LIST changes: -GASTROGRAFIN SOLUTION 30ML (Q9963) As Ordered ONE; -ISOVUE-370 76% 100ML VIAL As Ordered ONE
== END ==
LOC: M WHC 08:01
PROVIDERS: ATTEND Nurse Practitioner Family
DX: Z12.31 Encounter for screening mammogram for malignant neoplasm of breast (principal)

== ENCOUNTER → 2023-03-04 | Outpatient (CLI) | payer MEDICARE, OTHER ==
[~2023-03-04] MED LIST changes: -ROSU20TA5; +ROSU20TA61
== END ==
LOC: M WUC 14:24
PROVIDERS: ATTEND Family Medicine
DX: R05.9 Cough, unspecified (principal)

== ENCOUNTER → 2023-04-22 | Outpatient (CLI) | payer MEDICARE, OTHER | LOC: M RAD 06:49 | PROVIDERS: ATTEND Family Medicine | DX: Z87.891 Personal history of nicotine dependence (principal) ==

== ENCOUNTER → 2024-02-24 | Outpatient (CLI) | payer MEDICARE, OTHER ==
[2024-02-24 16:56] LABS: APPEARANCE, URINE CLEAR (CLEAR); BACTERIA, URINE AUTO NEGATIVE (NEGATIVE); BILIRUBIN, URINE AUTO NEGATIVE (NEGATIVE); BLOOD, URINE BLOOD 1+ (NEGATIVE); COLOR, URINE COLORLESS (YELLOW); GLUCOSE, URINE (UA) AUTO NEGATIVE (NEGATIVE); KETONE, URINE AUTO NEGATIVE (NEGATIVE); LEUKOCYTE ESTERASE, URINE AUTO NEGATIVE (NEGATIVE); NITRITE, URINE AUTO NEGATIVE (NEGATIVE); PROTEIN, URINE AUTO NEGATIVE (NEGATIVE); RBC, URINE AUTO 0 /HPF (0-3); SQUAMOUS EPITHELIAL CELL UR AU 0 /HPF (0-6); UROBILINOGEN, URINE AUTO 0.2 mg/dL (0.0-2.0); WBC, URINE AUTO 0 /HPF (0-3)
[2024-02-24 17:01] LABS: BASO % 0.7 % (0.0-1.0); EOS % 0.7 % (0.0-3.0); HEMATOCRIT 40.6 % (36.0-47.0); HEMOGLOBIN 13.2 g/dl (12.0-15.5); LYMPH # 1.6 10^3/uL (1.5-5.0); LYMPH % 27.9 % (24.0-44.0); MEAN CORPUSCULAR HEMOGLOBIN 31.4 pg (27.0-33.0); MEAN CORPUSCULAR HGB CONC 32.5 g/dl (32.0-36.5); MEAN CORPUSCULAR VOLUME 96.4 fl (80.0-96.0); MONO # 0.4 10^3/uL (0.0-0.8); MONO % 6.1 % (2.0-8.0); NEUTROPHILS # 3.8 10^3/uL (1.5-8.5); NEUTROPHILS % 64.1 % (36.0-66.0); PLATELET COUNT, AUTOMATED 193 10^3/uL (150-450); RED BLOOD COUNT 4.21 10^6/uL (4.00-5.40)
[2024-02-24 17:22] LABS: ALBUMIN 4.3 G/DL (3.2-5.2); ALKALINE PHOSPHATASE 71 U/L (46-116); ALT/SGPT 24 U/L (7.0-40); AST/SGOT 24 U/L (<34); BILIRUBIN,TOTAL 0.4 MG/DL (0.3-1.2); BLOOD UREA NITROGEN 21 MG/DL (9-23); CARBON DIOXIDE LEVEL 28 MMOL/L (20-31); CHLORIDE LEVEL 106 MMOL/L (98-107); CHOLESTEROL LEVEL 148 MG/DL (<200); CHOLESTEROL RISK RATIO 1.96 (<5); CREATININE FOR GFR 0.85 MG/DL (0.55-1.30); GLOMERULAR FILTRATION RATE > 60.0 (>45); GLUCOSE, FASTING 80 MG/DL (74-106); HDL CHOLESTEROL 75.3 MG/DL (>40); LDL CHOLESTEROL 55.3 MG/DL (<100); NON-HDL-C 72.7 MG/DL; POTASSIUM SERUM 4.4 MMOL/L (3.5-5.1); SODIUM LEVEL 140 MMOL/L (136-145); TOTAL PROTEIN 7.6 G/DL (5.7-8.2); TRIGLYCERIDES LEVEL 87 MG/DL (<150)
[2024-02-24 17:25] LABS: FOLATE > 24.0 NG/ML (>5.4)
[2024-02-24 17:54] LABS: VITAMIN B12 LEVEL 759 PG/ML (211-911)
[2024-02-25 15:49] LABS: WHITE BLOOD COUNT 5.9 10^3/uL (4.0-10.0)
== END ==
LOC: M WUC 15:02
PROVIDERS: ATTEND Family Medicine
DX: I10 Essential (primary) hypertension (principal); F41.1 Generalized anxiety disorder; R41.81 Age-related cognitive decline

== ENCOUNTER 2024-03-17 17:09 | Emergency (ER) | payer MEDICARE, OTHER ==
[~2024-03-17] VITALS: Ht 162.6 cm; Wt 44.7 kg
[2024-03-17 18:13] LABS: BASO # 0.1 10^3/uL (0.0-0.2); BASO % 1.2 % (0.0-1.0); EOS # 0.1 10^3/uL (0.0-0.5); EOS % 1.8 % (0.0-3.0); HEMATOCRIT 39.9 % (36.0-47.0); HEMOGLOBIN 13.3 g/dl (12.0-15.5); LYMPH # 2.3 10^3/uL (1.5-5.0); LYMPH % 38.4 % (24.0-44.0); MEAN CORPUSCULAR HEMOGLOBIN 32.3 pg (27.0-33.0); MEAN CORPUSCULAR HGB CONC 33.3 g/dl (32.0-36.5); MEAN CORPUSCULAR VOLUME 96.8 fl (80.0-96.0); MONO # 0.4 10^3/uL (0.0-0.8); MONO % 6.1 % (2.0-8.0); NEUTROPHILS # 3.2 10^3/uL (1.5-8.5); NEUTROPHILS % 52.3 % (36.0-66.0); PLATELET COUNT, AUTOMATED 176 10^3/uL (150-450); RED BLOOD COUNT 4.12 10^6/uL (4.00-5.40)
[2024-03-17 18:38] LABS: LIPASE 53 U/L (12-53)
[2024-03-17 18:40] LABS: ALBUMIN 4.4 G/DL (3.2-5.2); ALKALINE PHOSPHATASE 69 U/L (46-116); ALT/SGPT 27 U/L (7.0-40); AST/SGOT 18 U/L (<34); BILIRUBIN,DIRECT < 0.1 MG/DL (<0.4); BILIRUBIN,TOTAL 0.3 MG/DL (0.3-1.2); BLOOD UREA NITROGEN 16 MG/DL (9-23); CARBON DIOXIDE LEVEL 29 MMOL/L (20-31); CHLORIDE LEVEL 106 MMOL/L (98-107); CREATININE FOR GFR 0.78 MG/DL (0.55-1.30); GLOMERULAR FILTRATION RATE > 60.0 (>45); GLUCOSE, FASTING 89 MG/DL (74-106); POTASSIUM SERUM 3.9 MMOL/L (3.5-5.1); SODIUM LEVEL 140 MMOL/L (136-145); TOTAL PROTEIN 7.6 G/DL (5.7-8.2)
[2024-03-17 18:42] LABS: THYROID STIMULATING HORMONE 1.455 uIU/ML (0.55-4.78)
[2024-03-17 18:50] LABS: CPK CREATINE PHOSPHOKINASE 85 U/L (34-145); MB/CK RELATIVE INDEX 1.17 (< OR =4)
[2024-03-17 19:57] LABS: CK-MB VALUE MASS < 1.0 NG/ML (<3.6)
[2024-03-17 19:58] LABS: CPK CREATINE PHOSPHOKINASE 62 U/L (34-145); MB/CK RELATIVE INDEX 1.61 (< OR =4)
[2024-03-17] MEDS ORDERED: ISOVUE-370 76% 100ML VIAL As Ordered ONE (20:14)
[2024-03-17] MEDS: FAMOTIDINE 20MG/2ML VIAL IVP ONE (20:17)
[2024-03-17 20:32] VITALS: BP 147/71
[2024-03-17] MEDS: NITROGLYCERIN 0.4MG SUBL TABLET SL STA (20:32)
[2024-03-17 21:30] VITALS: BP 96/54; TEMP 98.4; O2SAT 98
== END 2024-03-17 21:45 | disposition home or self-care (01) ==
LOC: M ED 17:09
DX: R07.89 Other chest pain (principal); R00.1 Bradycardia, unspecified; I10 Essential (primary) hypertension; E78.5 Hyperlipidemia, unspecified; F41.9 Anxiety disorder, unspecified; F17.210 Nicotine dependence, cigarettes, uncomplicated; Z79.1 Long term (current) use of non-steroidal anti-inflammatories (NSAID); Z79.899 Other long term (current) drug therapy
CPT/HCPCS: 71045; 71275; 80048; 80076; 82550; 82553; 83690; 84443; 84484; 85025; 87486; 87581; 87633; 87798; 93005; 93041; 94760; 96374; 99285; Q9967

== ENCOUNTER → 2024-03-23 | Outpatient (CLI) | payer MEDICARE, OTHER ==
[2024-03-23 13:02] LABS: HEMATOCRIT 42.7 % (36.0-47.0); HEMOGLOBIN 13.6 g/dl (12.0-15.5); MEAN CORPUSCULAR HEMOGLOBIN 31.5 pg (27.0-33.0); MEAN CORPUSCULAR HGB CONC 31.9 g/dl (32.0-36.5); MEAN CORPUSCULAR VOLUME 98.8 fl (80.0-96.0); PLATELET COUNT, AUTOMATED 192 10^3/uL (150-450); RED BLOOD COUNT 4.32 10^6/uL (4.00-5.40); WHITE BLOOD COUNT 8.6 10^3/uL (4.0-10.0)
[2024-03-23 13:08] LABS: ALBUMIN 4.4 G/DL (3.2-5.2); ALKALINE PHOSPHATASE 65 U/L (46-116); ALT/SGPT 29 U/L (7.0-40); AST/SGOT 23 U/L (<34); BILIRUBIN,TOTAL 0.4 MG/DL (0.3-1.2); BLOOD UREA NITROGEN 18 MG/DL (9-23); CALCIUM LEVEL 9.9 MG/DL (8.3-10.6); CARBON DIOXIDE LEVEL 29 MMOL/L (20-31); CHLORIDE LEVEL 105 MMOL/L (98-107); CREATININE FOR GFR 0.79 MG/DL (0.55-1.30); GLOMERULAR FILTRATION RATE > 60.0 (>45); GLUCOSE, FASTING 101 MG/DL (74-106); POTASSIUM SERUM 4.2 MMOL/L (3.5-5.1); SODIUM LEVEL 141 MMOL/L (136-145); TOTAL PROTEIN 7.5 G/DL (5.7-8.2)
== END ==
LOC: M WUC 09:33
PROVIDERS: ATTEND Student in an Organized Health Care Education/Training Program
DX: R60.0 Localized edema (principal)

== ENCOUNTER 2024-04-02 08:13 | Emergency (ER) | payer MEDICARE, OTHER ==
[~2024-04-02] VITALS: Ht 162.6 cm; Wt 47.1 kg
[2024-04-02] MEDS: ACETAMINOPHEN 500 MG TAB PO ONE (11:58)
[2024-04-02 13:44] VITALS: BP 137/67; TEMP 97.4; O2SAT 99
== END 2024-04-02 14:11 | disposition home or self-care (01) ==
LOC: M ED 08:13
DX: M50.30 Other cervical disc degeneration, unspecified cervical region (principal); M51.34 Other intervertebral disc degeneration, thoracic region; I10 Essential (primary) hypertension; E78.5 Hyperlipidemia, unspecified; F41.9 Anxiety disorder, unspecified; Z85.038 Personal history of other malignant neoplasm of large intestine; Z79.1 Long term (current) use of non-steroidal anti-inflammatories (NSAID); Z79.899 Other long term (current) drug therapy

== ENCOUNTER 2024-07-05 06:59 | Emergency (ER) | payer MEDICARE, OTHER ==
[~2024-07-05] VITALS: Ht 162.6 cm; Wt 47.0 kg
[~2024-07-05 06:59] MED LIST changes: -ROSU20TA61; +ROSU20TA86
[2024-07-05 08:24] VITALS: BP 143/81; TEMP 98; O2SAT 93
[2024-07-05] MEDS ORDERED: LIDOCAINE 1% MDV 20ML VIAL SC ONE (08:30)
[2024-07-05] MEDS: ACETAMINOPHEN 500 MG TAB PO ONE (08:56)
== END 2024-07-05 10:12 | disposition home or self-care (01) ==
LOC: M ED 06:59
DX: L02.214 Cutaneous abscess of groin (principal); I10 Essential (primary) hypertension; K57.90 Diverticulosis of intestine, part unspecified, without perforation or abscess without bleeding; C18.9 Malignant neoplasm of colon, unspecified; Z79.1 Long term (current) use of non-steroidal anti-inflammatories (NSAID); Z79.2 Long term (current) use of antibiotics; Z79.811 Long term (current) use of aromatase inhibitors; Z79.899 Other long term (current) drug therapy

== ENCOUNTER 2024-07-07 06:17 | Emergency (ER) | payer MEDICARE, OTHER ==
[~2024-07-07] VITALS: Ht 162.6 cm; Wt 46.8 kg
[2024-07-07 06:25] VITALS: BP 172/90; TEMP 97.4; O2SAT 100
[2024-07-07] MEDS ORDERED: CEPH500C PO (07:05)
== END 2024-07-07 07:55 | disposition home or self-care (01) ==
LOC: M ED 06:17
DX: L02.214 Cutaneous abscess of groin (principal); Z48.00 Encounter for change or removal of nonsurgical wound dressing; I10 Essential (primary) hypertension; Z79.1 Long term (current) use of non-steroidal anti-inflammatories (NSAID); Z79.2 Long term (current) use of antibiotics; Z79.899 Other long term (current) drug therapy

== ENCOUNTER 2024-07-20 08:53 | Emergency (ER) | payer MEDICARE, OTHER ==
[~2024-07-20] VITALS: Ht 162.6 cm; Wt 50.1 kg
[~2024-07-20 08:53] MED LIST changes: +CEPH500C PO; -ROSU20TA86; +ROSU20TA86 PO
[2024-07-20] MEDS ORDERED: ASPIRIN 81MG CHEW TABLET PO ONE (09:05)
[2024-07-20] MEDS: MORPHINE 2 MG/ML 1ML VIAL IV PRN (09:11)
[2024-07-20] MEDS ORDERED: HEPARIN 25,000 UNITS/250 ML D5W BAG (100 UNITS/ML) As Ordered ONE (09:14)
[2024-07-20] MEDS ORDERED: TENECTEPLASE 50 MG/10 ML VIAL As Ordered ONE (09:14)
[2024-07-20 09:18] LABS: BASO # 0.1 10^3/uL (0.0-0.2); BASO % 0.7 % (0.0-1.0); EOS # 0.1 10^3/uL (0.0-0.5); EOS % 1.7 % (0.0-3.0); HEMATOCRIT 36.8 % (36.0-47.0); HEMOGLOBIN 12.1 g/dl (12.0-15.5); LYMPH # 3.4 10^3/uL (1.5-5.0); LYMPH % 41.4 % (24.0-44.0); MEAN CORPUSCULAR HEMOGLOBIN 31.8 pg (27.0-33.0); MEAN CORPUSCULAR HGB CONC 32.9 g/dl (32.0-36.5); MEAN CORPUSCULAR VOLUME 96.6 fl (80.0-96.0); MONO # 0.6 10^3/uL (0.0-0.8); MONO % 7.2 % (2.0-8.0); NEUTROPHILS % 48.8 % (36.0-66.0); PLATELET COUNT, AUTOMATED 227 10^3/uL (150-450); RED BLOOD COUNT 3.81 10^6/uL (4.00-5.40); WHITE BLOOD COUNT 8.1 10^3/uL (4.0-10.0)
[2024-07-20] MEDS: TENECTEPLASE 50 MG/10 ML VIAL IV STA (09:18)
[2024-07-20] MEDS: HEPARIN SOD (PORCINE) 5000UNITS/ML 1ML VIAL/SYRINGE IV ONE (09:19)
[2024-07-20] MEDS: HEPARIN DRIP 25,000 UNITS in IV 1 EA IV SCH (09:20)
[2024-07-20 09:38] VITALS: BP 143/77; TEMP 96; O2SAT 100
[2024-07-20] MEDS: ONDANSETRON 4MG 2ML VIAL IV ONE (09:39)
[2024-07-20 09:44] LABS: CK-MB VALUE MASS < 1.0 NG/ML (<3.6)
[2024-07-20 09:46] LABS: BLOOD UREA NITROGEN 16 MG/DL (9-23); CALCIUM LEVEL 9.2 MG/DL (8.3-10.6); CARBON DIOXIDE LEVEL 24 MMOL/L (20-31); CHLORIDE LEVEL 110 MMOL/L (98-107); CREATININE FOR GFR 0.87 MG/DL (0.55-1.30); GLOMERULAR FILTRATION RATE > 60.0 (>45); GLUCOSE, FASTING 126 MG/DL (74-106); INR 0.88; PARTIAL THROMBOPLASTIN TIME 25.5 SECONDS (24.8-34.2); POTASSIUM SERUM 3.9 MMOL/L (3.5-5.1); PROTHROMBIN TIME 12.2 SECONDS (12.5-14.5); SODIUM LEVEL 142 MMOL/L (136-145)
[2024-07-20 09:54] LABS: CPK CREATINE PHOSPHOKINASE 73 U/L (34-145); MB/CK RELATIVE INDEX 1.36 (< OR =4)
== END 2024-07-20 09:44 | disposition short-term general hospital (02) ==
LOC: EDBD 08:53 → M ED 08:53
DX: I21.9 Acute myocardial infarction, unspecified (principal); I10 Essential (primary) hypertension; E78.5 Hyperlipidemia, unspecified; F17.210 Nicotine dependence, cigarettes, uncomplicated; Z79.1 Long term (current) use of non-steroidal anti-inflammatories (NSAID); Z79.899 Other long term (current) drug therapy
CPT/HCPCS: 71045; 80047; 80048; 82550; 82553; 84484; 85025; 85610; 85730; 93005; 93041; 94760; 96365; 96375; 99291; J2405; J3101

== ENCOUNTER → 2024-08-20 | Outpatient (CLI) | payer MEDICARE, OTHER ==
[~2024-08-20] MED LIST changes: +ASPI81TA26 PO; +CEFD1CAP9 PO; +CIPR500T39 PO; +CLOP75TA2 PO; +FLUC150T9; +MELA10CA PO; +METO1TAB32 PO; +MIRT-10 PO
[2024-08-20 12:54] LABS: BASO % 0.3 % (0.0-1.0); HEMATOCRIT 39.9 % (36.0-47.0); HEMOGLOBIN 13.1 g/dl (12.0-15.5); LYMPH # 0.8 10^3/uL (1.5-5.0); LYMPH % 7.3 % (24.0-44.0); MEAN CORPUSCULAR HEMOGLOBIN 31.5 pg (27.0-33.0); MEAN CORPUSCULAR HGB CONC 32.8 g/dl (32.0-36.5); MEAN CORPUSCULAR VOLUME 95.9 fl (80.0-96.0); MONO # 0.7 10^3/uL (0.0-0.8); MONO % 5.9 % (2.0-8.0); NEUTROPHILS # 9.8 10^3/uL (1.5-8.5); PLATELET COUNT, AUTOMATED 158 10^3/uL (150-450); RED BLOOD COUNT 4.16 10^6/uL (4.00-5.40); WHITE BLOOD COUNT 11.5 10^3/uL (4.0-10.0)
[2024-08-20 13:13] LABS: ALBUMIN 3.6 G/DL (3.2-5.2); BILIRUBIN,TOTAL 1.1 MG/DL (0.3-1.2); CALCIUM LEVEL 9.4 MG/DL (8.3-10.6); CREATININE FOR GFR 1.16 MG/DL (0.55-1.30); GLOMERULAR FILTRATION RATE 49.3 (>45); POTASSIUM SERUM 4.5 MMOL/L (3.5-5.1); TOTAL PROTEIN 7.1 G/DL (5.7-8.2)
== END ==
LOC: M LAB 12:18
PROVIDERS: ATTEND Registered Nurse
DX: N39.0 Urinary tract infection, site not specified (principal); N10 Acute pyelonephritis

== ENCOUNTER 2024-08-21 17:08 | Inpatient (IN) | payer MEDICARE, OTHER ==
[~2024-08-21] VITALS: Ht 165.1 cm; Wt 48.3 kg
[~2024-08-21 17:08] MED LIST changes: -ASPI81TA26 PO; -CEFD1CAP9 PO; -CIPR500T39 PO; -CLOP75TA2 PO; -FLUC150T9; -MELA10CA PO; -METO1TAB32 PO; -MIRT-10 PO
[2024-08-21] MEDS ORDERED: ASPI81TA26 PO (17:18)
[2024-08-21] MEDS ORDERED: CLOP75TA2 PO (17:18)
[2024-08-21] MEDS ORDERED: MIRT-10 PO (17:18)
[2024-08-21] MEDS ORDERED: FLUC150T9 (17:18)
[2024-08-21] MEDS ORDERED: CIPR500T39 PO (17:18)
[2024-08-21] MEDS ORDERED: METO1TAB32 PO (17:18)
[2024-08-21 17:52] LABS: BASO % 0.2 % (0.0-1.0); EOS % 0.1 % (0.0-3.0); HEMOGLOBIN 11.9 g/dl (12.0-15.5); LYMPH # 0.4 10^3/uL (1.5-5.0); LYMPH % 4.3 % (24.0-44.0); MEAN CORPUSCULAR HEMOGLOBIN 31.7 pg (27.0-33.0); MEAN CORPUSCULAR VOLUME 93.3 fl (80.0-96.0); MONO # 0.6 10^3/uL (0.0-0.8); MONO % 6.8 % (2.0-8.0); NEUTROPHILS # 7.3 10^3/uL (1.5-8.5); NEUTROPHILS % 87.1 % (36.0-66.0); PLATELET COUNT, AUTOMATED 145 10^3/uL (150-450); RED BLOOD COUNT 3.75 10^6/uL (4.00-5.40); WHITE BLOOD COUNT 8.4 10^3/uL (4.0-10.0)
[2024-08-21 18:12] LABS: INR 1.09; PARTIAL THROMBOPLASTIN TIME 33.1 SECONDS (24.8-34.2); PROTHROMBIN TIME 14.4 SECONDS (12.5-14.5)
[2024-08-21 18:15] LABS: BILIRUBIN,TOTAL 0.8 MG/DL (0.3-1.2); CALCIUM LEVEL 8.6 MG/DL (8.3-10.6); CREATININE FOR GFR 1.33 MG/DL (0.55-1.30); GLOMERULAR FILTRATION RATE 42.1 (>45); POTASSIUM SERUM 4.1 MMOL/L (3.5-5.1); TOTAL PROTEIN 6.6 G/DL (5.7-8.2)
[2024-08-21] MEDS: ACETAMINOPHEN 325 MG TAB PO ONE (18:20)
[2024-08-21] MEDS ORDERED: ISOVUE-370 76% 100ML VIAL As Ordered ONE (18:50)
[2024-08-21] MEDS: NS 500 ML IV ONE (20:17)
[2024-08-21] MEDS: cefTRIAXone SOD 1 GM in DEXTROSE 5% (D5W) ADV/MINI-BAG 50 ML IV ONE (20:17)
[2024-08-21] MEDS ORDERED: ALPRAZolam 0.25 MG TAB PO PRN (21:25)
[2024-08-21] MEDS ORDERED: MOM 30ML SUSPENSION UDC PO PRN (21:25)
[2024-08-21] MEDS ORDERED: MELA10CA PO (22:00)
[2024-08-21] MEDS ORDERED: HOME MED LIST COMPLETE! XX SCH (22:05)
[2024-08-21] MEDS: NS (Normal Saline) 0.9% 1,000 ML IV SCH (22:45)
[2024-08-21 22:52] VITALS: BP 100/55; TEMP 97.3; O2SAT 97
[2024-08-21] MEDS: MIRTAZAPINE 15 MG TAB PO SCH (23:06)
[2024-08-22] VITALS (8 sets, daily range): BP systolic 95–111; BP diastolic 53–60; TEMP 97.6–102.7; O2SAT 96–98
[2024-08-22] MEDS: RAMELTEON 8 MG TAB (ROZEREM) PO PRN (02:54)
[2024-08-22] MEDS: ACETAMINOPHEN 325 MG TAB PO PRN (02:55)
[2024-08-22 06:20] LABS: HEMATOCRIT 30.8 % (36.0-47.0); HEMOGLOBIN 10.3 g/dl (12.0-15.5); MEAN CORPUSCULAR HEMOGLOBIN 30.8 pg (27.0-33.0); MEAN CORPUSCULAR HGB CONC 33.4 g/dl (32.0-36.5); MEAN CORPUSCULAR VOLUME 92.2 fl (80.0-96.0); PLATELET COUNT, AUTOMATED 135 10^3/uL (150-450); RED BLOOD COUNT 3.34 10^6/uL (4.00-5.40); WHITE BLOOD COUNT 7.2 10^3/uL (4.0-10.0)
[2024-08-22 06:47] LABS: ALBUMIN 2.5 G/DL (3.2-5.2); BILIRUBIN,TOTAL 0.3 MG/DL (0.3-1.2); CALCIUM LEVEL 7.9 MG/DL (8.3-10.6); CREATININE FOR GFR 1.23 MG/DL (0.55-1.30); GLOMERULAR FILTRATION RATE 46.1 (>45); TOTAL PROTEIN 5.4 G/DL (5.7-8.2)
[2024-08-22] MEDS: CLOPIDOGREL 75 MG TAB PO SCH (09:00)
[2024-08-22] MEDS: DOCUSATE SODIUM 100MG CAPSULE PO SCH (09:00)
[2024-08-22] MEDS: ROSUVASTATIN 10 MG TAB (CRESTOR) PO SCH (09:00)
[2024-08-22] MEDS: ASPIRIN 81MG ENTERIC TABLET PO SCH (09:00)
[2024-08-22] MEDS: METOPROLOL SUCC *XL* 25MG TAB (TopROL *XL*) PO SCH (09:00)
[2024-08-22] MEDS: HEPARIN SOD (PORCINE) 5000UNITS/ML 1ML VIAL/SYRINGE SC SCH (13:50)
[2024-08-22] MEDS: cefTRIAXone SOD 1 GM in DEXTROSE 5% (D5W) ADV/MINI-BAG 50 ML IV SCH (20:22)
[2024-08-23 03:54] VITALS: BP 102/55; TEMP 98.8; O2SAT 95
[2024-08-23 05:57] LABS: HEMATOCRIT 29.9 % (36.0-47.0); HEMOGLOBIN 9.9 g/dl (12.0-15.5); MEAN CORPUSCULAR HEMOGLOBIN 31.2 pg (27.0-33.0); MEAN CORPUSCULAR HGB CONC 33.1 g/dl (32.0-36.5); MEAN CORPUSCULAR VOLUME 94.3 fl (80.0-96.0); PLATELET COUNT, AUTOMATED 158 10^3/uL (150-450); RED BLOOD COUNT 3.17 10^6/uL (4.00-5.40); WHITE BLOOD COUNT 6.5 10^3/uL (4.0-10.0)
[2024-08-23 06:21] LABS: CALCIUM LEVEL 8.5 MG/DL (8.3-10.6); CREATININE FOR GFR 1.01 MG/DL (0.55-1.30); GLOMERULAR FILTRATION RATE 57.9 (>45)
[2024-08-23] MEDS ORDERED: CEFD1CAP9 PO ×2 (07:23→07:55)
[2024-08-23 07:57] VITALS: BP 98/62; TEMP 98.8; O2SAT 96
[2024-08-23] MEDS: CEFDINIR 300 MG CAP (OMNICEF) PO ONE (08:50)
[2024-08-23] MEDS: CEFDINIR 300 MG CAP (OMNICEF) PO SCH (08:50)
== END 2024-08-23 09:06 | disposition home or self-care (01) | DRG 872 ==
LOC: M ED 17:08 → M ED INP 21:21 → M PCU 22:52
PROVIDERS: ADMIT Family Medicine; ATTEND Student in an Organized Health Care Education/Training Program
DX: A41.9 Sepsis, unspecified organism (principal); N10 Acute pyelonephritis; N17.9 Acute kidney failure, unspecified; I25.2 Old myocardial infarction; I10 Essential (primary) hypertension; B96.20 Unspecified Escherichia coli [E. coli] as the cause of diseases classified elsewhere; F41.9 Anxiety disorder, unspecified; Z85.038 Personal history of other malignant neoplasm of large intestine; Z90.49 Acquired absence of other specified parts of digestive tract; Z79.891 Long term (current) use of opiate analgesic; Z79.899 Other long term (current) drug therapy; Z95.5 Presence of coronary angioplasty implant and graft; Z79.02 Long term (current) use of antithrombotics/antiplatelets